=== PATIENT | male | born 1985 | race African-American/Black ===

== ENCOUNTER 2020-11-05 00:08 | Emergency (ER) | payer SELFPAY ==
--- NOTE | 2020-11-05 00:21 | NUR ---
CALLED 3 TIMES, NO ANSWER. PT LEFT W/O BEING TRIAGED
== END 2020-11-05 00:22 | disposition left against medical advice (07) ==
LOC: ER 00:17
DX: Z75.3 Unavailability and inaccessibility of health-care facilities (principal)